=== PATIENT | male | born 1990 | race Two or more races ===

== ENCOUNTER 2021-09-26 12:53 | Emergency (ER) | payer OTHER ==
[~2021-09-26] VITALS: Ht 165.1 cm; Wt 70.0 kg
[2021-09-26 14:28] VITALS: BP 129/76
[2021-09-26] MEDS ORDERED: TETANUS-DIPTH-ACEL PERTUSSIS 0.5ML SYR Tdap IM ONE (15:45)
[2021-09-26] MEDS ORDERED: ACET-1158 PO (16:09)
[2021-09-26] MEDS ORDERED: CEPH-509 PO (16:09)
== END 2021-09-26 16:32 | disposition home or self-care (01) ==
LOC: ER 12:53
DX: S61.213A Laceration without foreign body of left middle finger without damage to nail, initial encounter (principal); W22.8XXA Striking against or struck by other objects, initial encounter; Y93.89 Activity, other specified; Y92.89 Other specified places as the place of occurrence of the external cause; Y99.8 Other external cause status
CPT/HCPCS: 12001; 73140; 90471; 90715